=== PATIENT | male | born 1945 | race African-American/Black ===

== ENCOUNTER 2020-01-06 09:08 | Inpatient (IN) | payer OTHER ==
[~2020-01-06] VITALS: Ht 172.7 cm; Wt 74.2 kg
[2020-01-06 09:10] VITALS: BP 127/71
[2020-01-06] MEDS ORDERED: CHILDREN'S ASPI81 M1 PO (09:39)
[2020-01-06] MEDS ORDERED: AMLODIPINE BESY10 MG PO (09:39)
[2020-01-06] MEDS ORDERED: ZESTRIL5 MG PO (09:40)
[2020-01-06] MEDS ORDERED: LIPITOR40 MG PO (09:40)
[2020-01-06] MEDS ORDERED: DULCOLAX10 MG RECTAL (09:41)
[2020-01-06] MEDS ORDERED: TRAMADOL 50 MG50 MG PO (09:42)
[2020-01-06] MEDS ORDERED: MI-ACID 400-40355 ML PO (09:42)
[2020-01-06] MEDS ORDERED: TYLENOL EXTRA500 MG PO (09:43)
[2020-01-06] MEDS ORDERED: ENOXAPARIN30 MG/0.3 SUBQ (09:43)
[2020-01-06 09:48] LABS: ABSOLUTE NEUTROPHILS 15.1 thou/uL (1.4-8.2); BASOPHILS 0.5 % (0.0-2.0); HEMATOCRIT 49.1 % (42.0-52.0); HEMOGLOBIN 16.2 gm/dL (14.0-18.0); MCH 30.7 pg (26.0-34.0); MCHC 33.1 g/dL (28.0-37.0); MCV 92.8 fL (80.0-100.0); MONOCYTES 3.3 % (1.0-8.0); POLYS 92.2 % (36.0-66.0); RBC 5.29 mil/uL (4.50-6.00); RDW 13.8 % (10.5-14.5); WBC 16.4 thou/uL (4.0-11.0)
[2020-01-06 10:03] LABS: BE(vivo) -5.3 mmol/L (-2 to +3); HCO3 17.8 mmol/L (22.0-26.0); PO2 74.4 mmHg (80.0-100.0); pH 7.405 (7.360-7.450); sO2 95.2 % (92.0-98.0)
[2020-01-06 10:22] LABS: PLATELET COUNT 157 thou/uL (150-400)
[2020-01-06 10:41] LABS: ALBUMIN 2.5 g/dL (3.4-5.0); CALCIUM 7.4 mg/dL (8.5-10.1); CREATININE 2.5 mg/dL (0.7-1.3); DIRECT BILIRUBIN 0.2 mg/dL (<0.1-0.2); TOTAL BILIRUBIN 0.9 mg/dL (0.2-1.0); TOTAL PROTEIN 7.1 g/dL (6.4-8.2); TROPONIN-I 0.07 ng/mL (<0.06)
[2020-01-06 12:47] LABS: MAGNESIUM 3.6 mg/dL (1.8-2.4); PHOSPHORUS 6.1 mg/dL (2.5-4.9)
[2020-01-06 14:08] LABS: URINE BILIRUBIN NEGATIVE (Negative); URINE BLOOD 1+ (Negative); URINE CLARITY CLOUDY; URINE COLOR YELLOW; URINE GLUCOSE-RANDOM* 3+ (Negative); URINE KETONES TRACE (Negative); URINE LEUKOCYTES-REFLEX NEGATIVE (Negative); URINE NITRITE-REFLEX NEGATIVE (Negative); URINE PROTEIN (DIPSTICK) 1+ (Negative); URINE SPECIFIC GRAVITY 1.025 (1.005-1.035)
[2020-01-06 14:35] LABS: AMORPHOUS URATES Many /LPF (None Seen); BACTERIA-REFLEX 1-9 Few /HPF (None Seen); CASTS None Seen /LPF (None Seen); SQUAMOUS 0-3 Few /LPF (0-3); TRANSITIONAL EPITHEL CELL 0-3 Few /LPF (None Seen); URINE RBC 0-2 Rare /HPF (0-2); URINE WBC-REFLEX >25 Many /HPF (0-5)
--- NOTE | 2020-01-06 15:10 | NUR ---
PER ROBI D/C INSULIN REGULAR IV PUSH.
[2020-01-06 18:41] LABS: ALBUMIN 2.8 g/dL (3.4-5.0); CALCIUM 8.7 mg/dL (8.5-10.1); MAGNESIUM 3.5 mg/dL (1.8-2.4); PHOSPHORUS 2.5 mg/dL (2.5-4.9); POTASSIUM 3.2 mmol/L (3.5-5.1)
[2020-01-06 19:31] LABS: BE(vivo) -1.2 mmol/L (-2 to +3); HCO3 21.5 mmol/L (22.0-26.0); PCO2 30.8 mmHg (35.0-45.0); PO2 62.6 mmHg (80.0-100.0); pH 7.461 (7.360-7.450); sO2 93.4 % (92.0-98.0)
[2020-01-06 21:59] VITALS: BP 133/89
[2020-01-06 23:47] VITALS: BP 138/85
[2020-01-07] VITALS (25 sets, daily range): BP systolic 91–140; BP diastolic 30–86
[2020-01-07 01:18] LABS: ALBUMIN 2.7 g/dL (3.4-5.0); CALCIUM 9.1 mg/dL (8.5-10.1); CREATININE 2.6 mg/dL (0.7-1.3); MAGNESIUM 3.4 mg/dL (1.8-2.4); PHOSPHORUS 2.4 mg/dL (2.5-4.9); POTASSIUM 3.8 mmol/L (3.5-5.1)
[2020-01-07 05:29] LABS: ABSOLUTE NEUTROPHILS 12.8 thou/uL (1.4-8.2); BASOPHILS 0.2 % (0.0-2.0); HEMATOCRIT 44.1 % (42.0-52.0); HEMOGLOBIN 14.7 gm/dL (14.0-18.0); LYMPHOCYTES 7.5 % (24.0-44.0); MCH 30.6 pg (26.0-34.0); MCHC 33.3 g/dL (28.0-37.0); MONOCYTES 3.4 % (1.0-8.0); PLATELET COUNT 152 thou/uL (150-400); POLYS 88.9 % (36.0-66.0); RBC 4.79 mil/uL (4.50-6.00); RDW 13.7 % (10.5-14.5); WBC 14.4 thou/uL (4.0-11.0)
[2020-01-07 05:40] LABS: CALCIUM 9.3 mg/dL (8.5-10.1); CREATININE 2.5 mg/dL (0.7-1.3); MAGNESIUM 3.6 mg/dL (1.8-2.4); PHOSPHORUS 2.7 mg/dL (2.5-4.9); POTASSIUM 3.2 mmol/L (3.5-5.1)
--- NOTE | 2020-01-07 08:25 | NUR ---
see [facility] for assessment. Cont on insulin gtt. current bs 153 on 3 u/hr. pt has become more alert. Hx stroke, aphasic. Rt arm/leg active movement. Temp wnl after Tylenol supp. Cont congested cough, 02sat remains >92 on 3lnc. good uo. cont enhanced precautions
--- NOTE | 2020-01-07 08:41 | EKG ---
[facility] [place] [address] ELECTROCARDIOGRAM REPORT Name: PAPI SMITH Room #: 246-P ADM IN M.R.#: [id number] Admission: 01/06/20 Attend Phys: Jaqui Garrett MD Discharge: Date of : 43 Report #: [id number] THIS REPORT FOR: cc: Dawood Cardenas,Dawood Rich,Trey Arora MD [facility] THIS REPORT FOR: //name// [facility] ED Test Date: 2020-01-06 Test Time: 09:25:17 Pat Name: PAPI SMITH Department: Room: [facility] Gender: M [employer] Operator: Jamie : 1945 Requested By: Ebony Guajardo Order Number: [id number] MD: Trey Lamb Measurements Intervals [place] Rate: 105 P: 46 DC: 166 QRS: 54 QRSD: 92 T: 58 QT: 360 QTc: 476 Interpretive Statements Sinus tachycardia Borderline prolonged QT interval No previous ECG available for comparison Electronically Signed On 01-07-2020 8:41:21 CDT by Trey Lamb [email or web address] <ELECTRONICALLY SIGNED> By: Trey Lamb MD, FAC 01/07/20 0841 4 4 Trey Lamb MD, [facility] /EPI
--- NOTE | 2020-01-07 09:08 | HC ---
[facility] [place] [address] CONSULTATION Name: PAPI SMITH Room #: 246-P [facility] IN M.R.#: [id number] Admission: 01/06/20 Attend Phys: Jaqui Garrett MD Discharge: Date of : 43 Report #: [id number] THIS REPORT FOR: cc: Dawood Cardenas,Per Shah MD ~ CC: Dawood Garrett DATE OF SERVICE: 01/06/2020 ENDOCRINE CONSULTATION NOTE CONSULTING PHYSICIAN: Dr. Garrett. REASON FOR CONSULTATION: Uncontrolled type 2 diabetes mellitus. HISTORY OF PRESENT ILLNESS: This is a 74-year-old male patient whose medical background is significant for multiple medical issues including dementia, type 2 diabetes mellitus, hyperlipidemia and history of CVA. The [facility] and has been recently confirmed to have COVID-19. The patient presented to the ER with shortness of breath and was minimally communicative. The patient is known to have a history of type 2 diabetes mellitus, but there is not an obvious documentation of an antidiabetic regimen in his charts. On arrival, the patient's blood glucose value was 586 mg/dL with an anion gap of 20. There is no documentation of diabetic retinopathy or specific mention of CKD, but the patient's creatinine on presentation was 2.5. Also, the patient is known to have hyperlipidemia and is maintained on atorvastatin therapy. He has a history of hypertension and is maintained on amlodipine 10 mg daily and lisinopril 5 mg daily. REVIEW OF SYSTEMS: CONSTITUTIONAL: Fatigue, tiredness, no fever or chills. HEENT: Negative for sore throat, sinus pain, ear drainage. PULMONARY: Shortness of breath and cough, but not hemoptysis. CARDIAC: Negative for chest pain, palpitations, syncope or presyncope. GASTROINTESTINAL: Negative for abdominal pain, nausea, vomiting or changes in bowel movement frequency. NEUROLOGY: Negative for loss of consciousness, seizure activity. PSYCHIATRIC: No dementia. Minimal communication. Otherwise, review of system is noncontributory other than those mentioned in HPI. [facility] [address] [place] [address] CONSULTATION Name: PAPI SMITH Room #: 246-P [facility] IN M.R.#: [id number] Admission: 01/06/20 Attend Phys: Jaqui Garrett MD Discharge: Date of : 43 Report #: [id number] PAST MEDICAL HISTORY: 1. Type 2 diabetes mellitus. 2. Hypertension. 3. Hyperlipidemia. 4. History of cerebrovascular accident. 5. Dementia. 6. Possible GERD. OUTPATIENT MEDICATIONS: Amlodipine 10 mg daily, lisinopril 5 mg daily, atorvastatin 40 mg daily, tramadol b.i.d. p.r.n. 50 mg, acetaminophen 1000 mg q. 8 hours p.r.n., Lovenox 30 mg subcutaneous b.i.d. ALLERGIES: No known drug allergies. FAMILY HISTORY: Noncontributory. SOCIAL HISTORY: No active use of tobacco or alcohol. Lives at a penitentiary facility. PHYSICAL EXAMINATION: GENERAL: Elderly -Qatari male patient who appears cachectic, lethargic. VITAL SIGNS: Blood pressure is 105/50 mmHg, heart rate is 105 beats per minute, respirations 32 per minute, and temperature 36.9 degrees Celsius. CONSTITUTIONAL: Cachectic, not in pain or distress. HEENT: Anicteric sclerae. Intact extraocular motions. NECK: Supple, no thyromegaly. CHEST: Shows limited air entry with scattered rales. HEART: Regular rate and rhythm without murmurs or gallops. ABDOMEN: Soft, lax. No guarding. Active bowel sounds. EXTREMITIES: Lower extremity exam is negative for ankle edema. NEUROLOGIC: Awake, alert, moves all extremities, noncooperative. PSYCHIATRIC: Noncommunicative. Awake, alert, cannot assess orientation. LABORATORY DATA: Blood glucose on arrival was over 500 as per fingerstick documented on blood draw as 586 mg/dL. Sodium 152, potassium 4.0, chloride 117, CO2 of 15, anion gap 20, BUN 105, creatinine 2.5, AST 67, total bilirubin 0.9, calcium 7.4, phosphorus 6.1, magnesium 3.6, alkaline phosphatase 66, ALT 33, total protein 7.1, albumin 2.5, EGFR 31. Troponin 0.07. BNP 609. White blood count 16.4, hemoglobin 16.2, hematocrit 49.1, platelets 157. TSH 1.436. Hemoglobin A1c was ordered and is pending. ASSESSMENT AND PLAN: 1. Diabetic ketoacidosis. The patient's current presentation is consistent with diabetic ketoacidosis as per his documented hyperglycemia and metabolic abnormalities including a wide anion gap. I discussed this outlook with [address] [place] [address] CONSULTATION Name: PAPI SMITH Room #: 246-P [facility] IN M.R.#: [id number] Admission: 01/06/20 Attend Phys: Jaqui Garrett MD Discharge: Date of : 43 Report #: [id number] Jeremi as well as the nursing staff in the Emergency Department. I will initiate therapy with intravenous insulin as per the [facility] intravenous insulin protocol along with intravenous fluid support. Blood glucose will be monitored as per protocol, and I am hopeful to be able to bring about a timely improvement in his outlook to where we can transition to subcutaneous insulin therapy. 2. Type 2 diabetes mellitus. Uncontrolled and marked by presentation of diabetic ketoacidosis. This certainly could have been made worse by the accompanying acute illness and dehydration. Hemoglobin A1c has been ordered and is pending and would help shed more light on his recent level of control. A definitive antidiabetic regimen will be determined based on his recorded intravenous insulin needs in the next 24 hours or so. 3. Hypernatremia. This is reflective of dehydration and a large fluid deficit, especially when accounting that this is in the setting of severe hyperglycemia as his sodium might actually approach 160 or so. IV fluid management is underway. 4. Hypocalcemia. This would be around normal once corrected for hypoalbuminemia. 5. Hyperlipidemia. The patient is maintained on atorvastatin therapy and tolerates it well, this will be resumed once he is clinically stable. 6. Pneumonia. The patient was diagnosed as COVID-19 positive. He is currently receiving therapy with IV steroids, azithromycin and ceftriaxone. I certainly appreciate this consultation by Dr. Garrett. <ELECTRONICALLY SIGNED> By: Per Zuniga MD 01/07/20 0908 [id number] Per Zuniga MD /nt
--- NOTE | 2020-01-07 09:25 | NUR ---
chart review. unable to visit with carine. gabbie spoke with caregiver bedside nurse from [facility]. intro to cm and dcp, asked if he had family, or PA to contact. " will send over face sheet, not sure. carine was independent with little assistance, he used wheel chair rt up unsteady gate, he was able to feed himself, transfer but we wanted him to have standby rt unsteady gait. lives here rt his mental dx"/bedside nurse. gabbie requested the fax over face sheet. pt on o2 3Lnc and was not requiring o2 at [facility] and was positive covid at [facility] as well. gabbie spoke with charge nurse icu, no contacts or face rt did not receive from ed.
[2020-01-07 15:25] LABS: URINE BILIRUBIN NEGATIVE (Negative); URINE BLOOD 3+ (Negative); URINE CLARITY CLEAR; URINE COLOR YELLOW; URINE GLUCOSE-RANDOM* TRACE (Negative); URINE KETONES NEGATIVE (Negative); URINE LEUKOCYTES TRACE (Negative); URINE NITRITE NEGATIVE (Negative); URINE PROTEIN (DIPSTICK) TRACE (Negative)
[2020-01-07 15:34] LABS: URINE CREATININE-RANDOM* 42.9 mg/dL
[2020-01-07 15:42] LABS: BACTERIA 1-9 Few /HPF (None Seen); CASTS None Seen /LPF (None Seen); SQUAMOUS None Seen /LPF (0-3); URIC ACID CRYSTALS >10 Many /LPF (None Seen); URINE RBC 3-10 Few /HPF (0-2); URINE WBC 0-5 Rare /HPF (0-5)
--- NOTE | 2020-01-07 16:48 | NUR ---
FAXED CLINICAL UPDATE TO [facility] RECEIVED CONFIRMAATION AND LEFT MSG WITH DENNY IN ADM. DP TO FOLLOW.
--- NOTE | 2020-01-07 16:51 | NUR ---
1415 RECIEVED REPORT FROM PATSY EVANS.
--- NOTE | 2020-01-07 18:19 | NUR ---
PT REMIANS NPO R/T LETHARGY. PT LARGELY ORIENTED TO SELF ONLY. WILL BE TRANSFERRED TO 3 THIS EVENING. WILL CONTINUE TO ASSESS.
[2020-01-08] VITALS (7 sets, daily range): BP systolic 114–136; BP diastolic 71–88
--- NOTE | 2020-01-08 07:11 | NUR ---
RECEIVED PT FROM ICU. PT IS MAINLY NONVERBAL BUT THIS AM HE HAD SOME CONFUSED CONVERSATION. HE IS SLIGHTLY RESTLESS IN BED AND PULLS AT TUBES LINES. IV SITE WRAPPED WITH COBAIN. CONTINUOUS PULSE OX APPLIED SINCE PT KEPT REMOVING O2. CHECKING PT FREQUENTLY. ACCU CHECKS Q 6 HRS. NOTIFIED WATER COMMISSIONER PT STILL + FOR COVID PER LAB. LAST COVID TEST WAS REEVALUATED AND CAME BACK POSITIVE. D5 STILL INFUSING AT 100. BED DOWN CALL LIGHT IN REACH. BED ALARM ON.
[2020-01-08 12:06] LABS: ALBUMIN 2.7 g/dL (3.4-5.0); CALCIUM 9.2 mg/dL (8.5-10.1); CREATININE 1.9 mg/dL (0.7-1.3); PHOSPHORUS 3.1 mg/dL (2.5-4.9); POTASSIUM 3.3 mmol/L (3.5-5.1)
--- NOTE | 2020-01-08 15:11 | NUR ---
SIMONE reviewed chart and spoke with nursing and attending physician. Pt is in Enhanced Isolation due to COVID-19. Pt was transferred to from ICU. Pt is afebrile and on 3L of O2. Pt is on IV abx. SIMONE spoke with MARA Patterson at [facility] to provide update. Leonardo states that pt does not have a DPOA or court-appointed guardian. Per Leonardo, pt was "dropped off at the facility" about a year ago and has not had any family or contacts check on him. Pt was discharged to [facility] from [facility]. Contact for Evelina Valera provided ([phone]). SIMONE placed call and number is no longer in service. SIMONE checked with the [facility] Claims Service Adjustor's Office, who does not have pt as one of their wards. SIMONE updated attending physician. SIMONE faxed updated clinical info to [facility] for review. Plan is for pt to return to [facility] when medically stable. SIMONE is following to assist as needed with discharge planning
--- NOTE | 2020-01-08 17:31 | NUR ---
PT OFF UNIT TO CT.
[2020-01-09 06:24] LABS: ALBUMIN 2.5 g/dL (3.4-5.0); CALCIUM 9.1 mg/dL (8.5-10.1); CREATININE 1.7 mg/dL (0.7-1.3); PHOSPHORUS 3.7 mg/dL (2.5-4.9); POTASSIUM 4.1 mmol/L (3.5-5.1)
--- NOTE | 2020-01-09 06:40 | NUR ---
ASSUMED CARE FROM DAY SHIFT PT QUIET RESTED WELL THROUHGOUT HOURLY ROUNDS, CERTIFIED REGISTERED DENTAL ASSISTANT SHOWS NSR- ST WILL CONITNUE CURRENT PLAN OF CARE.
[2020-01-09 08:00] VITALS: BP 141/70
--- NOTE | 2020-01-09 09:15 | NUR ---
Pt has been npo x 3 days. If unable to intiate oral intake in next 24hr would consider a dobhoff placement and start glucerna 1.2 at 30ml/hr with goal of 65ml/hr. Will continue to follow
[2020-01-09 11:21] VITALS: BP 138/81
--- NOTE | 2020-01-09 12:29 | NUR ---
SIMONE reviewed chart and spoke with nursing and attending physician. Pt is in Enhanced Isolation due to COVID-19. Pt is afebrile and on 2L of O2. Pt is on IV abx. Dischrage back to [facility] is anticipated for tomorrow. SIMONE faxed clinical info/COVID test results to [facility] for review. SIMONE spoke with MARA Patterson at [facility] to provide update. Leonardo requests a repeat COVID test prior to discharge. SIMONE notified attending physician. SIMONE is following to assist as needed with discharge planning.
--- NOTE | 2020-01-09 12:43 | NUR ---
ASSUMED PATIENT CARE THIS AM AT APPROXIMATEL 0700. PATIENT AWAKE, DROWSY BUT OPENS EYES AND RESPONDING TO QUESTIONS, FOLLOWING COMMANDS. PATIENT TURNED IN BED Q2H AND HEELS OFFLOADED. O2 SAT STABLE ON 2LNC AT THIS TIME. RESPIRATIONS EVEN/UNLABORED. SEEN BY NEPHRO STATES THAT HE STILL NEED IV FLUIDS TO REGUALTE SODIUM LEVEL. SPEECH CONSULT ORDERED THIS SHIFT FOR SWALLOWING EVAL. PATIENT VOICE SOUNDED WET WITH PO WATER INTAKE THIS AM. ORAL CARE TOLERATED. GOOD URINE OUTPUT FROM ESTRADA.
[2020-01-09 15:00] VITALS: BP 126/77
[2020-01-09 20:52] VITALS: BP 140/84
[2020-01-10 04:23] VITALS: BP 135/84
[2020-01-10 07:01] LABS: ALBUMIN 2.6 g/dL (3.4-5.0); CALCIUM 8.6 mg/dL (8.5-10.1); CREATININE 1.2 mg/dL (0.7-1.3); POTASSIUM 3.9 mmol/L (3.5-5.1)
--- NOTE | 2020-01-10 07:43 | NUR ---
ASSUME CARE 1900. PT/VITALS STABLE. NO PAIN INDICATED. A/O TO PERSON ONLY AND POORLY COMMUNICAES NEEDS. MODERATE TOLERANCE TO ACTIVITY BUT COULD BENEFIT FROM PT/OT. NEEDS SUPERVISION AND ASSISTANCE WITH FEEDING DUE TO POCKETING OF FOOD. PT NEEDS TO BE REMINDED TO SWALLOW HIS FOOD. SR ON MONITOR. NO DISTRESS NOTED THROUGH THE NIGHT. ROOM AIR THROUGH THE NIGHT WITH SATS UIN HIGH 90s, CLEAR BREATH SOUNDS. PLAN IS A POSSIBLE DISCHARGE BACK TO [facility] WITHIN A FEW DAYS IF NEGATIE COVID RESULTS X 2
[2020-01-10 08:00] VITALS: BP 138/88
--- NOTE | 2020-01-10 13:53 | NUR ---
SIMONE reviewed chart and spoke with nursing and attending physician. Pt is in Enhanced Isolation due to COVID-19. Pt is afebrile and not requiring O2. PT is on IV abx. ST evaluated pt earlier today. Pt on pureed diet with nectar thick liquids. Anticipate pt will be ready for discharge back to [facility] tomorrow. SIMONE spoke with MARA Patterson at [facility], to provide update and notify of anticipated discharge. SIMONE is following to assist as needed with discharge planning.
[2020-01-10 15:42] VITALS: BP 113/74
[2020-01-10 15:47] VITALS: BP 150/75
--- NOTE | 2020-01-10 18:26 | NUR ---
PATIENT KEESP ATTEMPTING TO LEAVE THE BED. EASILY REDIRECTED BACK TO BED. HE HAS REFUSED TO EAT ANY MEALS THROUGH THE DAY. HE IS ALERT BUT CONFUSED. ESTRADA IN PLACE THROUGH THE DAY. TAKEN OUT FOR VOIDING TRIAL. HE HAS NOT VOICED FOR TWO HOURS NOW. WILL KEEP MONITORING. WILL CONT WITH PLAN OF CARE.
[2020-01-10 19:43] VITALS: BP 134/72
--- NOTE | 2020-01-11 02:45 | NUR ---
ASSESSMENT CHARTED. MEDS CHARTED GIVEN. PATIENT CONFUSED, SEEMS ALERT TO SELF. ABLE TO SAY SOME UNDERSTANDABLE WORDS, BUT MOST ARE NOT UNDERSTANDABLE. LUNGS ARE CLEAR ON ROOM AIR. PATIENT HAS ESTRADA. IS INCONTINENT OF BOWEL. HAD BOWEL MOVEMENT. PATIENT IS ALSO ACCU CHECK ACHS. WAS 442 AT 2100. GAVE 20 UNITS. SPOKE WITH MARVA MAS. ORDER TO RECHECK AT MIDNIGHT. 0000 ACCUCHECK WAS 100. PATIENT ON D5 DRIP AT 75ML/HR. PLAN OF CARE IS TO RETURN HIM TO [facility] IF HIS SODIUM IS IMPROVED. FALL PRECAUTIONS IN PLACE DURING SHIFT. PATIENT GOT OUT OF BED DURING SHIFT, DID NOT FALL. STAFF ABLE TO REDIRECT HIM BACK TO BED.
[2020-01-11 04:35] VITALS: BP 125/81
[2020-01-11 06:26] LABS: CALCIUM 8.6 mg/dL (8.5-10.1); CREATININE 1.3 mg/dL (0.7-1.3); POTASSIUM 3.8 mmol/L (3.5-5.1)
[2020-01-11 11:28] VITALS: BP 92/58
--- NOTE | 2020-01-11 12:02 | NUR ---
DISCHARGE NOTE: Iliana reviewed chart and spoke with nursing and attending physician. Pt remains in Enhanced Isolation due to COVID-19. Pt is afebrile and not requiring O2. Pt is medically stable to discharge back to [facility] today. ILIANA spoke with MARA Patterson at [facility] to provide update. Leonardo confirms they are able to accept pt back today. Awaiting final discharge orders/summary at this time. Will coordinate transportation when orders are available. Chart copy requested. ILIANA is following to assist as needed with discharge planning.
[2020-01-11] MEDS ORDERED: COMBIVENT RESPIM4 GM INH (12:17)
[2020-01-11] MEDS ORDERED: ALLOPURINOL 10100 M1 PO (12:17)
[2020-01-11] MEDS ORDERED: AMOX TR-K CLV1 EAC4 PO (12:17)
[2020-01-11] MEDS ORDERED: LANTUS SUBQ (12:17)
[2020-01-11] MEDS ORDERED: HUMALOG100 UNIT/1 SUBQ (12:17)
[2020-01-11] MEDS ORDERED: TRADJENTA5 MG PO (12:17)
[2020-01-11] MEDS ORDERED: ASPIRIN325 PO (12:17)
[2020-01-11 16:27] VITALS: BP 104/62
--- NOTE | 2020-01-11 18:03 | NUR ---
PATIENT DISCHARGED TO [facility] AT THIS TIME. HE IS ALERT ORIENTED TO SELF. HE HAD A BM EARLIER. CONT TO HAVE GOOD BS. HE DOES NOT SEEM TO BE IN PAIN. VICTORINA ATTEMPTED TO CALL [facility] NUMEROUS TIMES TO GIVE REPORT BUT NO ONE IS ANSWERING THE PHONE. WILL KEEP ON TRYING.
--- NOTE | 2020-01-17 03:59 | HC ---
[facility] [place] [address] CONSULTATION Name: PAPI SMITH Room #: 358-P [facility] IN M.R.#: [id number] Admission: 01/06/20 Attend Phys: Jaqui Garrett MD Discharge: 01/11/20 Date of : 43 Report #: [id number] THIS REPORT FOR: cc: Dawood Cardenas,Tc Gregg MD ~ CC: Dawood Garrett DATE OF SERVICE: 01/08/2020 HISTORY OF PRESENT ILLNESS: This is a 74-year-old male patient who was seen by me for any neurological etiology for the patient's altered mental status. The patient does not provide any history. He did not say a single word to me. I reviewed the record and it looks like this patient has been nonverbal when seen first time by Dr. Guajardo in the Emergency Room. History is not very clear and I cannot reach anybody to give me the history from the family. From the record, it looks like this patient has underlying dementia. At least that is what the records indicate. I reviewed Dr. Toribio's notes and I will talk to her tomorrow. 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 I do not know which hospital he was on and I do not have any further history in that regard. This patient has been nonverbal since admission. REVIEW OF SYSTEMS: From the record is positive for renal failure. It is positive for prior history of CVA, history of dementia as per record and diabetes. I carried out as much as I could the 14-point review of system and this has been all I can get. His creatinine was 2.5 when he came in and is gradually becoming better. His hemoglobin A1c was 10 when he came in. His TSH has been unremarkable. That is all the history I have. PAST MEDICAL HISTORY: Positive for what looks like dementia and stroke from the record, but I cannot confirm that history. FAMILY HISTORY: Unavailable. SOCIAL HISTORY: Apparently, he is in a skilled nursing. PHYSICAL EXAMINATION: The patient's examination was attempted. It is very limited. He did not say any single word for me, so it is not possible to check his memory or fund of knowledge. Cranial nerve examination 2-12 was attempted. It was completely unsuccessful. It looks like he can move both sides in spite of his prior stroke, but I cannot tell anything more that. Sensory system was impossible. Reflexes appeared to be diminished, but [place] [address] CONSULTATION Name: PAPI SMITH Room #: 358-P [facility] IN M.R.#: [id number] Admission: 01/06/20 Attend Phys: Jaqui Garrett MD Discharge: 01/11/20 Date of : 43 Report #: [id number] not appear to be in that much respiratory distress. His blood pressure is 123/80, temperature is 97.5, pulse is 68. LABORATORY DATA: Indicate a white count of 14.4. IMAGING STUDY: Was reviewed and it does look like he has ischemic changes on the right side. He had somewhat unusual because it looks mostly in the white matter, but he does appear to have changes. IMPRESSION: It is not possible to tell what is going on, this patient has no history available. He is severely hyponatremic and that is probably the contributing factor to encephalopathy. He has a systemic infection including COVID that will cause encephalopathy. He can have COVID-related problems to the CLAIMS CONFIGURATION ANALYST, but not much could be done. PLAN: I will discuss with you tomorrow. I think the main emphasis should be to correct the metabolic disturbances and try to determine if possible what her baseline is and to see how aggressive to be. If the patient has dementia as well as stroke in the past, it might be desirable not to be too aggressive in this except for treating some baseline conditions. Thank you very much for this referral and if you have any question, please feel free to contact me. <ELECTRONICALLY SIGNED> By: Tc Blum MD 01/17/20 0359 Tc Blum MD /nt
== END 2020-01-11 17:40 | DRG 177 ==
LOC: ER 09:08 → EROBS 12:00 → 3W 12:00 → ICU 22:01 → 3W 01-07 23:50 → ICU 01-07 23:59 → 3W 01-11 17:40
PROVIDERS: Emergency Medicine; Hospitalist; Internal Medicine Nephrology; ADMIT Internal Medicine; ATTEND Internal Medicine
DX: U07.1 COVID-19 (principal); J96.01 Acute respiratory failure with hypoxia; E11.10 Type 2 diabetes mellitus with ketoacidosis without coma; J12.89 Other viral pneumonia; G93.41 Metabolic encephalopathy; N17.9 Acute kidney failure, unspecified; E87.0 Hyperosmolality and hypernatremia; E87.1 Hypo-osmolality and hyponatremia; I69.354 Hemiplegia and hemiparesis following cerebral infarction affecting left non-dominant side; F03.90 Unspecified dementia, unspecified severity, without behavioral disturbance, psychotic disturbance, mood disturbance, and anxiety; E78.5 Hyperlipidemia, unspecified; E86.0 Dehydration; E83.51 Hypocalcemia; K21.9 Gastro-esophageal reflux disease without esophagitis; I66.01 Occlusion and stenosis of right middle cerebral artery; R13.10 Dysphagia, unspecified; N40.1 Benign prostatic hyperplasia with lower urinary tract symptoms; R33.8 Other retention of urine; E11.65 Type 2 diabetes mellitus with hyperglycemia; I12.9 Hypertensive chronic kidney disease with stage 1 through stage 4 chronic kidney disease, or unspecified chronic kidney disease; E11.22 Type 2 diabetes mellitus with diabetic chronic kidney disease; N18.3 Chronic kidney disease, stage 3 (moderate); E87.8 Other disorders of electrolyte and fluid balance, not elsewhere classified; Z79.899 Other long term (current) drug therapy; Z79.82 Long term (current) use of aspirin
CPT/HCPCS: 10203; 10879